=== PATIENT | male | born 1970 | race Caucasian/White ===

== ENCOUNTER → 2024-06-21 09:05 | Outpatient (REF) | payer OTHER, SELFPAY | LOC: RCS 09:05 | PROVIDERS: ATTENDING PHYSICIAN Family Medicine | DX: R00.1 Bradycardia, unspecified (principal); I49.3 Ventricular premature depolarization | CPT/HCPCS: 93225; 93226 ==

== ENCOUNTER 2025-04-09 09:26 | Outpatient (RCR) | payer OTHER, SELFPAY | END 2025-04-09 23:59 | disposition home or self-care (01) | LOC: RST 09:26 | PROVIDERS: FAMILY PHYSICIAN Family Medicine | DX: S06.9X9D Unspecified intracranial injury with loss of consciousness of unspecified duration, subsequent encounter (principal); R41.89 Other symptoms and signs involving cognitive functions and awareness; R41.841 Cognitive communication deficit; R41.840 Attention and concentration deficit; Z73.6 Limitation of activities due to disability | CPT/HCPCS: 96125; 97129; 97130 ==

== ENCOUNTER 2025-05-09 10:56 | Outpatient (RCR) | payer OTHER, MEDICARE, SELFPAY | END 2025-05-09 23:59 | disposition home or self-care (01) | LOC: RPT 10:56 | PROVIDERS: FAMILY PHYSICIAN Family Medicine | DX: S06.9X9D Unspecified intracranial injury with loss of consciousness of unspecified duration, subsequent encounter (principal); R41.89 Other symptoms and signs involving cognitive functions and awareness; R41.841 Cognitive communication deficit; R41.840 Attention and concentration deficit; Z73.6 Limitation of activities due to disability | CPT/HCPCS: 97129; 97130 ==

== ENCOUNTER 2025-06-08 06:47 | Outpatient (RCR) | payer OTHER, MEDICARE, SELFPAY | END 2025-06-08 23:59 | disposition home or self-care (01) | LOC: RPT 06:47 | PROVIDERS: FAMILY PHYSICIAN Family Medicine | DX: S06.9X9D Unspecified intracranial injury with loss of consciousness of unspecified duration, subsequent encounter (principal); R41.89 Other symptoms and signs involving cognitive functions and awareness; R41.841 Cognitive communication deficit; R41.840 Attention and concentration deficit; Z73.6 Limitation of activities due to disability | CPT/HCPCS: 97010; 97110; 97112; 97116; 97129; 97130; 97140; 97163; 97167; 97530; 97535 ==

== ENCOUNTER 2025-07-11 07:30 | Outpatient (RCR) | payer OTHER, MEDICARE, SELFPAY | END 2025-07-11 13:10 | disposition home or self-care (01) | LOC: RPT 07:30 | PROVIDERS: FAMILY PHYSICIAN Family Medicine | DX: S06.9X9D Unspecified intracranial injury with loss of consciousness of unspecified duration, subsequent encounter (principal); R41.89 Other symptoms and signs involving cognitive functions and awareness; R41.841 Cognitive communication deficit; R41.840 Attention and concentration deficit; Z73.6 Limitation of activities due to disability; G62.9 Polyneuropathy, unspecified | CPT/HCPCS: 97110; 97112; 97116; 97530; 97535 ==